=== PATIENT | male | born 1940 | race Caucasian/White ===

== ENCOUNTER 2016-11-11 18:47 | Inpatient (IN) | payer MEDICARE, OTHER ==
[~2016-11-11] VITALS: Ht 170.2 cm; Wt 71.2 kg
--- NOTE | 2016-11-11 19:03 | NUR ---
PT TRANSFERRED FROM [facility] FOR MED CLEARANCE AND ADMISSION TO MHU.PT AWAKE,ALERT AND COOPERATIVE AT PRESENT TIME.ANSWERING SOME QUESTIONS WITHOUT DIFFICULTY. PT IS ALERT, ORIENTED X 3, ABLE TO MAKE NEEDS KNOWN, ABLE TO AMBULATE WITHOUT ASSISTANCE... MD AT BEDSIDE...
[2016-11-11] MEDS ORDERED: ASPI81TA31 PO (19:27)
[2016-11-11] MEDS ORDERED: ATOR40TA PO (19:27)
[2016-11-11] MEDS ORDERED: FURO20TA4 PO (19:28)
[2016-11-11] MEDS ORDERED: HYDR-3326 PO (19:32)
[2016-11-11] MEDS ORDERED: ALBU2.5V38 IH (19:32)
[2016-11-11 19:51] LABS: HEMATOCRIT 43.5 % (40.0-50.0); HEMOGLOBIN 13.8 g/dL (14.0-18.0); MEAN CORPUSCULAR HEMOGLOBIN 28.7 uug (27.0-31.0); MEAN CORPUSCULAR HGB CONC 32 g/dL (32.0-37.0); MEAN CORPUSCULAR VOLUME 90.3 fL (82.0-92.0); RED BLOOD CELL COUNT(AUTO) 4.82 MIL/uL (4.70-6.10); RED CELL DISTRIBUTION WIDTH 13.7 % (11.5-14.5)
[2016-11-11 19:53] LABS: PLATELET COUNT (AUTO) 143 K/uL (150-450)
[2016-11-11 20:07] LABS: ETHANOL < 3 MG/DL (0-0)
[2016-11-11 20:08] LABS: BAND % (MANUAL) 4 % (0-10); EOSINOPHILS % (MANUAL) 4 % (0-8); LYMPHOCYTES % (MANUAL) 27 % (20-40); MONOCYTES % (MANUAL) 7 % (2-10); NEUTROPHILS % (MANUAL) 58 % (42-75); PLATELET ESTIMATE SLIGHT DECREASED
[2016-11-11 20:10] LABS: CALCIUM 8.9 mg/dL (8.5-10.1); CARBON DIOXIDE 30 mmol/L (21-32); CHLORIDE 104 mmol/L (98-107); CREATININE 1.1 mg/dL (0.6-1.3); GLUCOSE 138 mg/dL (74-106); POTASSIUM 4.4 mmol/L (3.5-5.1); SODIUM SERUM 140 mmol/L (136-145); UREA NITROGEN, BLOOD 14 mg/dL (7-18)
[2016-11-11 20:13] LABS: ALANINE AMINOTRANSFERASE 35 U/L (16-63); ALBUMIN 3.4 g/dL (3.4-5.0); ALKALINE PHOSPHATASE 117 U/L (50-136); ASPARTATE AMINOTRANSFERASE 36 U/L (15-37); BILIRUBIN,DIRECT 0.3 mg/dL (0.0-0.2); TOTAL PROTEIN, SERUM 7.7 g/dL (6.4-8.2)
[2016-11-11 20:14] LABS: ACETAMINOPHEN < 2.0 ug/mL (10-30)
[2016-11-11 20:16] LABS: THYROID STIMULATING HORMONE 2.416 mIU/mL (0.358-3.740)
[2016-11-11 20:25] LABS: *BILIRUBIN,URIN NEGATIVE (NEGATIVE); *BLOOD, URINE NEGATIVE (NEGATIVE); *CLARITY,URINE CLEAR (CLEAR); *COLOR,URINE YELLOW (YELLOW); *KETONES,URINE NEGATIVE (NEGATIVE); *PROTEIN,URINE NEGATIVE (NEGATIVE); *UROBILINOGEN,URINE 0.2 E.U./dl (NORMAL); LEUKOCYTE ESTERASE ,URINE NEGATIVE (NEGATIVE); NITRITE, URINE NEGATIVE (NEGATIVE); PH,URINE 5.5 (5.0-8.0); UGLUCOSE NEGATIVE (NEGATIVE)
--- NOTE | 2016-11-11 20:30 | NUR ---
PT CURRENTLY SLEEPING IN BED, NO RESP DISTRESS NOTED UPON ASSESSMENT, WILL CONTINUE TO MONITOR FOR SAFETY, COMFORT, AND PAIN... LPS HAS BEEN PAGED FOR PSYCH ASSESSMENT...
[2016-11-11 20:35] LABS: WBC,URINE 0-3 /HPF (0-3)
[2016-11-11] MEDS ORDERED: MAG HYDROX/AL HYDROX/SIMETH 30 ML LIQUID UDC PO PRN (22:15)
[2016-11-11] MEDS ORDERED: ACETAMINOPHEN 325 MG TABLET PO PRN (22:15)
[2016-11-11] MEDS ORDERED: CLONAZEPAM 0.5 MG TABLET PO PRN (22:15)
[2016-11-11] MEDS ORDERED: TEMAZEPAM 7.5 MG CAPSULE PO PRN (22:15)
[2016-11-11] MEDS ORDERED: MAGNESIUM HYDROXIDE 30 ML LIQUID UDC PO PRN (22:15)
--- NOTE | 2016-11-11 22:31 | NUR ---
Pt. admitted to MHU , under care of Dr. Lopez, Belongs List completed, pt alert, oriented x 2-3, no resp distress noted upon transfer assessment... pt transferred via wheelchair belongings at side...
[2016-11-11] MEDS ORDERED: LORAZEPAM 2 MG/1 ML VIAL IM STA (22:47)
[2016-11-11] MEDS ORDERED: HALOPERIDOL LACTATE 5 MG/1 ML VIAL IM STA (22:47)
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
[2016-11-11 23:46] VITALS: BP 122/74
[2016-11-12 07:30] VITALS: BP 110/63
--- NOTE | 2016-11-12 08:39 | NUR ---
PAGED DIRECTOR CRITICAL CARE MD THROUGH SERVICE TO RECON MEDS, AWAITING CALL BACK.
--- NOTE | 2016-11-12 09:03 | NUR ---
SPOKE WITH DR CRAWFORD, HE WILL RECONCILE WHEN HE GETS TO THE HOSPITAL.
[2016-11-12] MEDS ORDERED: HYDROCODONE/APAP 5-325MG TABLET PO PRN (09:30)
[2016-11-12] MEDS: ASPIRIN 81 MG TAB.CHEW PO SCH (11:07)
[2016-11-12] MEDS: FUROSEMIDE 20 MG TABLET PO SCH (11:08)
--- NOTE | 2016-11-12 16:24 | NUR ---
MANNY DAVIS HX: SPOKE WITH JOZEF FROM [facility], THEY HAVE NO VACCINE RECORDS ON THIS PT.
[2016-11-12] MEDS ORDERED: HALOPERIDOL LACTATE 5 MG/1 ML VIAL IM ONE (17:15)
[2016-11-12] MEDS ORDERED: diphenhydrAMINE 50 MG/1 ML VIAL IM ONE (17:15)
[2016-11-12] MEDS ORDERED: LORAZEPAM 2 MG/1 ML VIAL IM ONE (17:15)
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
[2016-11-12 20:00] VITALS: BP 129/77
[2016-11-12] MEDS: ATORVASTATIN 40 MG TABLET PO SCH (20:46)
[2016-11-12] MEDS: DIVALPROEX SPRINKLE 125 MG CAP.SPRINK PO SCH (20:46)
[2016-11-12] MEDS ORDERED: OLANZAPINE ZYDIS 5 MG TAB.RAPDIS PO SCH (21:00)
[2016-11-13 07:30] VITALS: BP 110/67
[2016-11-13] MEDS: FUROSEMIDE 20 MG TABLET PO SCH (08:31)
[2016-11-13] MEDS: ASPIRIN 81 MG TAB.CHEW PO SCH (08:31)
[2016-11-13] MEDS: DIVALPROEX SPRINKLE 125 MG CAP.SPRINK PO SCH ×2 (08:31→20:04)
[2016-11-13 17:16] VITALS: BP 139/75
[2016-11-13] MEDS: ATORVASTATIN 40 MG TABLET PO SCH (20:05)
[2016-11-13] MEDS: OLANZAPINE ZYDIS 5 MG TAB.RAPDIS PO SCH (20:05)
--- NOTE | 2016-11-13 20:52 | NUR ---
PATIENT RECEIVED IN ROOM AWAKE. PATIENT PLEASANT UPON APPROACH, HOWEVER IS EASILY AGITATED, AND EASILY IRRITABLE IS REDIRECTABLE. PATIENT IS UNPREDICTABLE, CONTINUE TO MONITOR. PATIENT DENIES PAIN AT THIS TIME, WILL CONTINUE TO MONITOR. PATIENT IS HYPERVERBAL, NO AGGRESSIVE OR COMBATIVE BEHAVIOR NOTED WILL CONTINUE TO MONITOR. PATIENT COMPLAINT WITH HS MEDICATION. PATIENT HAS POOR INSIGHT, POOR JUDGEMENT CONTINUE TO MONITOR AND REDIRECT NEEDED. ENCOURAGED PATIENT TO EXPRESS FEELINGS AND CONCERNS. BED IN LOWEST POSITION, BED LOCKED AND BED ALARM ON WHILE IN BED.
[2016-11-13 22:28] VITALS: BP 114/67
[2016-11-14 08:00] VITALS: BP 137/76
[2016-11-14] MEDS: DIVALPROEX SPRINKLE 125 MG CAP.SPRINK PO SCH ×2 (08:21→20:16)
[2016-11-14] MEDS: OLANZAPINE ZYDIS 5 MG TAB.RAPDIS PO SCH ×2 (08:21→20:16)
[2016-11-14] MEDS: ASPIRIN 81 MG TAB.CHEW PO SCH (08:21)
[2016-11-14] MEDS: FUROSEMIDE 20 MG TABLET PO SCH (08:21)
--- NOTE | 2016-11-14 12:44 | NUR ---
Initial discharge instructions:Pt resides at [facility][[address],[address]].Per pt,he would like to return there upon discharge.Spoke with Anny at the facility who stated she would accept the pt back when ready.SW will speak with pt and MD regarding appropriate discharge planning.SW will form a safe and proper discharge.
[2016-11-14 16:37] VITALS: BP 126/86
[2016-11-14 20:05] VITALS: BP 108/50
[2016-11-14] MEDS: ATORVASTATIN 40 MG TABLET PO SCH (20:15)
--- NOTE | 2016-11-14 21:11 | NUR ---
PATIENT RECEIVED IN ACTIVITIES ROOM WATCHING T.V. PATIENT PLEASANT UPON APPROACH, HOWEVER IS EASILY AGITATED, AND EASILY IRRITABLE IS REDIRECTABLE. PATIENT DENIES PAIN AT THIS TIME, WILL CONTINUE TO MONITOR. PATIENT IS HYPERVERBAL, NO AGGRESSIVE OR COMBATIVE BEHAVIOR NOTED WILL CONTINUE TO MONITOR. PATIENT COMPLAINT WITH HS MEDICATION. PATIENT HAS POOR INSIGHT, POOR JUDGEMENT CONTINUE TO MONITOR AND REDIRECT NEEDED. ENCOURAGED PATIENT TO EXPRESS FEELINGS AND CONCERNS. BED IN LOWEST POSITION, BED LOCKED AND BED ALARM ON WHILE IN BED.
[2016-11-15 07:30] VITALS: BP 119/69
[2016-11-15] MEDS: DIVALPROEX SPRINKLE 125 MG CAP.SPRINK PO SCH ×2 (08:22→20:13)
[2016-11-15] MEDS: ASPIRIN 81 MG TAB.CHEW PO SCH (08:22)
[2016-11-15] MEDS: OLANZAPINE ZYDIS 5 MG TAB.RAPDIS PO SCH ×2 (08:22→20:12)
[2016-11-15] MEDS: FUROSEMIDE 20 MG TABLET PO SCH (08:22)
[2016-11-15 16:32] VITALS: BP 124/64
[2016-11-15] MEDS: ATORVASTATIN 40 MG TABLET PO SCH (20:12)
[2016-11-15 20:29] VITALS: BP 110/56
[2016-11-16 07:27] LABS: BASOPHILS # (AUTO) 0.1 K/uL (0.0-0.2); BASOPHILS % (AUTO) 1.9 % (0.0-2.0); EOSINOPHILS # (AUTO) 0.2 K/uL (0.0-0.7); HEMATOCRIT 49.1 % (40.0-50.0); HEMOGLOBIN 15.4 g/dL (14.0-18.0); LYMPHOCYTES # (AUTO) 1.9 K/uL (0.8-4.8); LYMPHOCYTES % (AUTO) 29.5 % (20.5-51.5); MEAN CORPUSCULAR HEMOGLOBIN 28.5 uug (27.0-31.0); MEAN CORPUSCULAR HGB CONC 31 g/dL (32.0-37.0); MEAN CORPUSCULAR VOLUME 90.9 fL (82.0-92.0); MONOCYTES # (AUTO) 0.7 K/uL (0.1-1.30); MONOCYTES % (AUTO) 10.7 % (0.0-11.0); NEUTROPHILS # (AUTO) 3.5 K/uL (1.8-8.9); NEUTROPHILS % (AUTO) 54.9 % (38.5-71.5); PLATELET COUNT (AUTO) 145 K/uL (150-450); RED CELL DISTRIBUTION WIDTH 14.2 % (11.5-14.5); WHITE BLOOD COUNT (AUTO) 6.4 K/uL (4.0-11.2)
[2016-11-16 07:30] VITALS: BP 98/67
[2016-11-16 08:22] LABS: ALBUMIN 3.4 g/dL (3.4-5.0); BILIRUBIN,TOTAL 1.5 mg/dL (0.2-1.0); CALCIUM 8.9 mg/dL (8.5-10.1); MAGNESIUM 2.2 mg/dL (1.8-2.4); PHOSPHOROUS 4.1 mg/dL (2.5-4.9); POTASSIUM 4.8 mmol/L (3.5-5.1); TOTAL PROTEIN, SERUM 7.7 g/dL (6.4-8.2)
[2016-11-16] MEDS: DIVALPROEX SPRINKLE 125 MG CAP.SPRINK PO SCH ×2 (08:22→20:08)
[2016-11-16] MEDS: ASPIRIN 81 MG TAB.CHEW PO SCH (08:23)
[2016-11-16] MEDS: OLANZAPINE ZYDIS 5 MG TAB.RAPDIS PO SCH ×2 (08:23→20:08)
[2016-11-16] MEDS: FUROSEMIDE 20 MG TABLET PO SCH (08:23)
[2016-11-16] MEDS ORDERED: INFLUENZA VACCINE 0.5 ML DISP.SYRIN IM ONE (13:00)
[2016-11-16] MEDS ORDERED: PNEUMOCOCCAL 23-VAL P-SAC VAC 0.5 ML VIAL IM ONE (13:00)
[2016-11-16 16:00] VITALS: BP 129/64
[2016-11-16] MEDS: ATORVASTATIN 40 MG TABLET PO SCH (20:08)
[2016-11-16 20:23] VITALS: BP 124/67
[2016-11-17 07:30] VITALS: BP 112/59
[2016-11-17] MEDS: OLANZAPINE ZYDIS 5 MG TAB.RAPDIS PO SCH (08:16)
[2016-11-17] MEDS: FUROSEMIDE 20 MG TABLET PO SCH (08:16)
[2016-11-17] MEDS: DIVALPROEX SPRINKLE 125 MG CAP.SPRINK PO SCH (08:16)
[2016-11-17] MEDS: ASPIRIN 81 MG TAB.CHEW PO SCH (08:16)
--- NOTE | 2016-11-17 10:11 | NUR ---
DC Note: The Patient will be discharged today back to [facility] [[address], [place] [address]; ] via private transportation at 4:00 pm. Patient will be picked up by the facility's transportation service. Spoke with Anny at the facility who stated she would accept the patient back today. Patient has no family to contact. Patient is aware and agreeable with discharge plans. Patient will follow-up with (Psychiatrist) and (Inspector Raw Quartz) at the facility.
--- NOTE | 2016-11-17 17:47 | NUR ---
GPS NSG NOTE 1700: DISCHARGED PT IN STABLE CONDITION VIA PRIVATE AMBULANCE TO [facility]. BELONGINGS SENT WITH THE PATIENT.
== END 2016-11-17 17:00 | DRG 885 ==
LOC: ER 18:47 → GPS 22:12
PROVIDERS: ADMIT Psychiatry & Neurology Psychiatry; ATTEND Internal Medicine
DX: F39 Unspecified mood [affective] disorder (principal); I48.2 Chronic atrial fibrillation; F29 Unspecified psychosis not due to a substance or known physiological condition; D64.9 Anemia, unspecified; D69.6 Thrombocytopenia, unspecified; E78.00 Pure hypercholesterolemia, unspecified; G89.29 Other chronic pain; F17.210 Nicotine dependence, cigarettes, uncomplicated; F20.9 Schizophrenia, unspecified; R73.03 Prediabetes; Z59.0 Homelessness; J44.9 Chronic obstructive pulmonary disease, unspecified; Z95.1 Presence of aortocoronary bypass graft; Z73.6 Limitation of activities due to disability; Z87.440 Personal history of urinary (tract) infections; E80.6 Other disorders of bilirubin metabolism
CPT/HCPCS: 36415; 83735; 84100; 84443; 85025; 90686; 90732; 93005; 97001; A4663; G0480-TC; G6040-TC; J1200; J1630; J2060

== ENCOUNTER 2016-12-05 20:07 | Inpatient (IN) | payer MEDICARE, OTHER ==
[~2016-12-05] VITALS: Ht 177.8 cm; Wt 74.8 kg
[~2016-12-05 20:07] MED LIST: ALBU2.5V38 IH; ASPI81TA31 PO; ATOR40TA PO; FURO20TA4 PO; HYDR-3326 PO
--- NOTE | 2016-12-05 20:25 | NUR ---
Pt brought into ER by pick up truck driver and nurse from [place] to be medically cleared to admitted to MHU. Pt denies SI,hallucinations. Pt calm and cooperative
--- NOTE | 2016-12-05 20:29 | NUR ---
MRSA servillance obtain and sent to lab. Doug list completed
[2016-12-05] MEDS ORDERED: MAGN400O4 PO (20:32)
[2016-12-05] MEDS ORDERED: BISA10SU12 RC (20:32)
[2016-12-05] MEDS ORDERED: ACET-2154 PO (20:32)
[2016-12-05] MEDS ORDERED: MAG-55 PO (20:32)
[2016-12-05 20:34] LABS: BASOPHILS # (AUTO) 0.1 K/uL (0.0-8.0); BASOPHILS % (AUTO) 1.1 % (0.0-2.0); EOSINOPHILS # (AUTO) 0.2 K/uL (0.0-0.7); EOSINOPHILS % (AUTO) 4.3 % (0.0-7.0); HEMATOCRIT 37.8 % (36.7-47.1); HEMOGLOBIN 12.6 g/dL (12.5-16.3); LYMPHOCYTES # (AUTO) 1.3 K/uL (20.0-40.0); LYMPHOCYTES % (AUTO) 23.7 % (20.5-51.5); MEAN CORPUSCULAR HEMOGLOBIN 30.1 uug (23.8-33.4); MEAN CORPUSCULAR HGB CONC 33 g/dL (32.5-36.3); MEAN CORPUSCULAR VOLUME 90.7 fL (73.0-96.2); MONOCYTES # (AUTO) 0.8 K/uL (2.0-10.0); MONOCYTES % (AUTO) 14.7 % (0.0-11.0); NEUTROPHILS # (AUTO) 3.3 K/uL (1.8-8.9); NEUTROPHILS % (AUTO) 56.2 % (38.5-71.5); PLATELET COUNT (AUTO) 144 K/uL (152-348); RED BLOOD CELL COUNT(AUTO) 4.17 MIL/uL (4.06-5.63); RED CELL DISTRIBUTION WIDTH 14.3 % (12.1-16.2); WHITE BLOOD COUNT (AUTO) 5.7 K/uL (3.6-10.2)
[2016-12-05 20:39] LABS: *BILIRUBIN,URIN NEGATIVE (NEGATIVE); *BLOOD, URINE NEGATIVE (NEGATIVE); *CLARITY,URINE SLIGHTLY CLOUDY (CLEAR); *COLOR,URINE YELLOW (YELLOW); *KETONES,URINE NEGATIVE (NEGATIVE); *PROTEIN,URINE NEGATIVE (NEGATIVE); *UROBILINOGEN,URINE 0.2 E.U./dl (NORMAL); LEUKOCYTE ESTERASE ,URINE 3+ (NEGATIVE); NITRITE, URINE NEGATIVE (NEGATIVE); UGLUCOSE NEGATIVE (NEGATIVE)
[2016-12-05 20:42] LABS: CALCIUM 8.4 mg/dL (8.5-10.1); CARBON DIOXIDE 29 mmol/L (21-32); CHLORIDE 102 mmol/L (98-107); GLUCOSE 137 mg/dL (74-106); SODIUM SERUM 137 mmol/L (136-145); UREA NITROGEN, BLOOD 17 mg/dL (7-18)
[2016-12-05 20:49] LABS: ALANINE AMINOTRANSFERASE 30 U/L (16-63); ALKALINE PHOSPHATASE 83 U/L (50-136); ASPARTATE AMINOTRANSFERASE 28 U/L (15-37); BILIRUBIN,DIRECT 0.2 mg/dL (0.0-0.2); BILIRUBIN,TOTAL 0.7 mg/dL (0.2-1.0); TOTAL PROTEIN, SERUM 7.1 g/dL (6.4-8.2)
[2016-12-05 20:51] LABS: ETHANOL < 3 MG/DL (0-0)
[2016-12-05 20:52] LABS: *AMPHETAMINE, URINE NEGATIVE (NEGATIVE); *BARBITURATE, URINE NEGATIVE (NEGATIVE); *CANNABINOID, URINE NEGATIVE (NEGATIVE); *COCCAINE, URINE NEGATIVE (NEGATIVE); *OPIATE, URINE NEGATIVE (NEGATIVE); *PHENCYCLIDINE SCREEN,URINE NEGATIVE (NEGATIVE); BACTERIA,URINE MODERATE /HPF (NONE SEEN); RBC,URINE 0-3 /HPF (0-3); WBC,URINE 20-50 /HPF (0-3)
[2016-12-05 20:54] LABS: ACETAMINOPHEN < 2.0 ug/mL (10-30)
[2016-12-05 20:55] LABS: THYROID STIMULATING HORMONE 2.482 mIU/mL (0.358-3.740)
--- NOTE | 2016-12-05 20:59 | NUR ---
Medically cleared by Dr Lara
[2016-12-05] MEDS ORDERED: NITROFURANTOIN/NITROFURAN MAC 100 MG CAPSULE PO ONE (21:15)
--- NOTE | 2016-12-05 21:27 | NUR ---
Delfino Fam will come to eval pt
[2016-12-05] MEDS ORDERED: NITROFURANTOIN/NITROFURAN MAC 100 MG CAPSULE ONE (21:29)
--- NOTE | 2016-12-05 22:25 | NUR ---
Art Capilla placed patient on 5150 hold for GD
--- NOTE | 2016-12-05 23:13 | NUR ---
Transfered to [facility] via chris
[2016-12-05] MEDS ORDERED: MAG HYDROX/AL HYDROX/SIMETH 30 ML LIQUID UDC PO PRN (23:30)
[2016-12-05] MEDS ORDERED: CLONAZEPAM 0.5 MG TABLET PO PRN (23:30)
[2016-12-05] MEDS ORDERED: MAGNESIUM HYDROXIDE 30 ML LIQUID UDC PO PRN (23:30)
[2016-12-05] MEDS ORDERED: ACETAMINOPHEN 325 MG TABLET PO PRN (23:30)
[2016-12-06 00:19] VITALS: BP 114/61
--- NOTE | 2016-12-06 00:35 | NUR ---
PATIENT RECEIVED FROM ER VIA [facility] AT 2315, PATIENT ALERT/ORIENTED X2 WITH CONFUSION. DISORIENTED,AND DISORGANIZED NOTED. PATIENT EASILY AGITATED, AND EASILY IRRITABLE, UNPREDICTABLE BEHAVIOR. POOR JUDGEMENT, AND POOR IMPULSE CONTROL, POOR INSIGHT. PATIENT CHECKED FOR CONTRABAND NOTED WITH BELT REMOVED AND PLACED IN LOCKER WITH NAME. PATIENT ALSO CHANGED IN HOSPITAL GOWN. SKIN NOTED WITH ULCER TO LEFT FOOT WILL ORDER WOUND CONSULT TO FURTHER DETERMINE TREATMENT, RIGHT THUMB ABRASION NOTED. PATIENT ORIENTED TO ROOM AND BATHROOM REQUIRES REDIRECTION AND REINFORCEMENT. PATIENT RECEIVED PATIENT HAND BOOK AND ADVISEMENT. BED IN LOWEST POSITION, BED LOCKED, AND BED ALARM ON WHILE IN BED. NO AGGRESSIVE BEHAVIOR NOTED, NO COMBATIVE BEHAVIOR NOTED WILL CONTINUE TO MONITOR AND REDIRECT NEEDED.
--- NOTE | 2016-12-06 05:44 | NUR ---
PATIENT SLEPT 5:15, NO AGGRESSIVE OR COMBATIVE BEHAVIOR NOTED.
[2016-12-06 07:30] VITALS: BP 117/72
[2016-12-06] MEDS: NICOTINE 21 MG/24HR PATCH TD SCH (11:00)
--- NOTE | 2016-12-06 11:00 | NUR ---
Psychosocial assessment/criminal justice social worker: I have reviewed this patient's psychosocial dated 11/11/2016 and can attest to the accuracy of information therein. There have been no changes since his last assessment. Patient's mood is easily irritable, aggravated, and verbally aggressive today. He appeared partially confused and is alert/oriented x2. Patient refused nicotine patch and stated " I don't want to f quit smoking." Per Anny at [facility], the patient will have to be placed at their sister-facility ([facility]).
[2016-12-06] MEDS: CEPHALEXIN MONOHYDRATE 500 MG CAPSULE PO SCH ×3 (11:05→21:25)
[2016-12-06] MEDS: FUROSEMIDE 20 MG TABLET PO SCH (11:05)
[2016-12-06] MEDS: ASPIRIN 81 MG TAB.CHEW PO SCH (11:05)
[2016-12-06] MEDS: DIVALPROEX SPRINKLE 125 MG CAP.SPRINK PO SCH ×2 (13:22→20:26)
[2016-12-06] MEDS: OLANZAPINE ZYDIS 5 MG TAB.RAPDIS PO SCH ×2 (13:22→17:59)
--- NOTE | 2016-12-06 13:36 | NUR ---
WOUND CARE CONSULT: PT PRESENTS WITH LEFT DORSAL FOOT WOUND. RECOMMEND DPM CONSULT. RECOMMENDATIONS MADE FOR WOUND CARE. DISCUSSED WITH NURSING STAFF. PER NURSING STAFF, PT IS CONTINENT AND AMBULATORY. GWENDOYLN SCORE IS 21. WILL SEE PRN. BEAR IN AGREEMENT WITH PLAN OF CARE. Addendum: 12/06/16 at 1337 by MICHELLE RAMSEY RN Amended: Links added.
[2016-12-06] MEDS: BACITRACIN/POLYMYXIN B OINT 15 GM TUBE TOP SCH (15:12)
[2016-12-06 15:21] VITALS: BP 106/67
--- NOTE | 2016-12-06 20:00 | NUR ---
PT RECEIVED IN HIS ROOM AWAKE, EASILY IRRITATED AND AGITATED, VERY DISORGANIZED SPEECH AND THOUGHT, WILL CONTINUE TO MONITOR CLOSELY.
[2016-12-06] MEDS: ATORVASTATIN 40 MG TABLET PO SCH (20:26)
[2016-12-06 20:37] VITALS: BP 118/62
--- NOTE | 2016-12-07 01:00 | NUR ---
PT STILL AWAKE, PERIODICALLY ARGUING WITH HIS ROOM, SLEEPING MED OFFERED, PT DECLINED, WILL CONTINUE TO MONITOR.
--- NOTE | 2016-12-07 03:00 | NUR ---
PT STILL AWAKE, REFUSES ANTI ANXIETY MED SAYING " I TOOK A NAP DURING THE DAY, I DON'T SLEEP A LOT". WILL CONTINUE TO MONITOR CLOSELY.
[2016-12-07] MEDS: BLOOD SUGAR DIAGNOSTIC 1 EACH STRIP VI SCH (06:06)
[2016-12-07] MEDS: CEPHALEXIN MONOHYDRATE 500 MG CAPSULE PO SCH ×3 (06:06→22:05)
[2016-12-07] MEDS: HYDROCODONE/APAP 5-325MG TABLET PO PRN (06:13)
--- NOTE | 2016-12-07 06:15 | NUR ---
PT AT THE NURSING STATION COMPLAINING OF LOWER BACK PAIN, VERY IRRITATED, AND VERBALLY ABUSIVE, PAIN MED GIVEN ORDERED, WILL CONTINUE TO MONITOR.
[2016-12-07 07:30] VITALS: BP 101/59
[2016-12-07] MEDS: DIVALPROEX SPRINKLE 125 MG CAP.SPRINK PO SCH ×2 (08:22→20:02)
[2016-12-07] MEDS: OLANZAPINE ZYDIS 5 MG TAB.RAPDIS PO SCH ×2 (08:22→17:23)
[2016-12-07] MEDS: FUROSEMIDE 20 MG TABLET PO SCH (08:22)
[2016-12-07] MEDS: ASPIRIN 81 MG TAB.CHEW PO SCH (08:22)
[2016-12-07] MEDS: BACITRACIN/POLYMYXIN B OINT 15 GM TUBE TOP SCH (08:25)
[2016-12-07] MEDS: NICOTINE 21 MG/24HR PATCH TD SCH (08:33)
--- NOTE | 2016-12-07 13:07 | NUR ---
WEEKLY MEETING PO INTAKE 100% ON CARDIAC DIET PER RN, PT HAS HX OF DIABETES, NOT INDICATED IN CHART HG A1C=6.3%, GLUCOSE ON 12/0523=025, ACCUCHECK ON 12/07=89 REC TO MONITOR GLUCOSE LABS, IF ELEVATED, REC TO ADD CCHO DIET RESTRICTION LAST BM ON 12/06 NOTED OPEN WOUND ON LEFT FOOT MEDS: LIPITOR, LASIX, NO DNI NOTED NUTRITION DIAGNOSIS: ALTERED NUTRITION RELATED LABS RELATED TO ENDOCRINE DYSFUNCTION EVIDENCED BY HG A1C AND GLUCOSE LABS MONITOR LABS, PO, AND WEIGHT Addendum: 12/07/16 at [address] Amended: Links added.
[2016-12-07 16:00] VITALS: BP 118/60
[2016-12-07] MEDS: ATORVASTATIN 40 MG TABLET PO SCH (20:02)
[2016-12-07 20:34] VITALS: BP 124/63
--- NOTE | 2016-12-07 21:01 | NUR ---
PT RECEIVED IN BED, EASILY IRRITABLE/AGITATED BUT NO AGGRESSIVE BEHAVIOR NOTED. NO ACUTE DISTRESS NOTED. SAFETY MEASURES MAINTAINED.
--- NOTE | 2016-12-08 03:00 | NUR ---
PATIENT AWAKE SITTING ON BED, MEDICATION FOR INSOMNIA OFFERED BUT PATIENT REFUSED DESPITE EDUCATION. NO ACUTE DISTRESS NOTED. WILL CONTINUE TO MONITOR FOR SAFETY.
--- NOTE | 2016-12-08 06:07 | NUR ---
PT AWAKE THROUGH OUT THE NIGHT, SLEPT 3 HOURS. NO ACUTE DISTRESS NOTED. SAFETY MEASURES PROVIDED.
[2016-12-08] MEDS: CEPHALEXIN MONOHYDRATE 500 MG CAPSULE PO SCH ×3 (06:32→21:16)
[2016-12-08] MEDS: BLOOD SUGAR DIAGNOSTIC 1 EACH STRIP VI SCH (06:36)
[2016-12-08 07:30] VITALS: BP 121/57
[2016-12-08] MEDS: FUROSEMIDE 20 MG TABLET PO SCH (08:20)
[2016-12-08] MEDS: OLANZAPINE ZYDIS 5 MG TAB.RAPDIS PO SCH ×2 (08:21→16:14)
[2016-12-08] MEDS: DIVALPROEX SPRINKLE 125 MG CAP.SPRINK PO SCH ×2 (08:21→18:08)
[2016-12-08] MEDS: ASPIRIN 81 MG TAB.CHEW PO SCH (08:21)
[2016-12-08] MEDS: NICOTINE 21 MG/24HR PATCH TD SCH (08:21)
[2016-12-08] MEDS: BACITRACIN/POLYMYXIN B OINT 15 GM TUBE TOP SCH (08:21)
[2016-12-08 16:00] VITALS: BP 90/52
[2016-12-08 20:06] VITALS: BP 116/79
[2016-12-08] MEDS: ATORVASTATIN 40 MG TABLET PO SCH (20:18)
[2016-12-08] MEDS: TEMAZEPAM 7.5 MG CAPSULE PO PRN (21:14)
[2016-12-09] MEDS: BLOOD SUGAR DIAGNOSTIC 1 EACH STRIP VI SCH (06:25)
[2016-12-09] MEDS: CEPHALEXIN MONOHYDRATE 500 MG CAPSULE PO SCH ×3 (06:25→21:27)
[2016-12-09 07:18] LABS: HEMATOCRIT 40.1 % (36.7-47.1); HEMOGLOBIN 13.3 g/dL (12.5-16.3); MEAN CORPUSCULAR HEMOGLOBIN 30.3 uug (23.8-33.4); MEAN CORPUSCULAR HGB CONC 33 g/dL (32.5-36.3); PLATELET COUNT (AUTO) 130 K/uL (152-348); RED CELL DISTRIBUTION WIDTH 14.5 % (12.1-16.2); WHITE BLOOD COUNT (AUTO) 5.5 K/uL (3.6-10.2)
[2016-12-09 07:30] VITALS: BP 119/49
[2016-12-09 07:31] LABS: ALBUMIN 3.3 g/dL (3.4-5.0); BILIRUBIN,TOTAL 1.3 mg/dL (0.2-1.0); CALCIUM 8.6 mg/dL (8.5-10.1); MAGNESIUM 2.1 mg/dL (1.8-2.4); PHOSPHOROUS 4.3 mg/dL (2.5-4.9); POTASSIUM 4.1 mmol/L (3.5-5.1); TOTAL PROTEIN, SERUM 7.5 g/dL (6.4-8.2)
[2016-12-09] MEDS: OLANZAPINE ZYDIS 5 MG TAB.RAPDIS PO SCH ×2 (08:00→16:07)
[2016-12-09] MEDS: FUROSEMIDE 20 MG TABLET PO SCH (08:00)
[2016-12-09] MEDS: NICOTINE 21 MG/24HR PATCH TD SCH (08:00)
[2016-12-09] MEDS: ASPIRIN 81 MG TAB.CHEW PO SCH (08:00)
[2016-12-09] MEDS: DIVALPROEX SPRINKLE 125 MG CAP.SPRINK PO SCH ×3 (08:00→16:07)
[2016-12-09] MEDS: BACITRACIN/POLYMYXIN B OINT 15 GM TUBE TOP SCH (09:25)
[2016-12-09 10:51] LABS: EOSINOPHILS % (MANUAL) 3 % (0-8); LYMPHOCYTES % (MANUAL) 26 % (20-40); MONOCYTES % (MANUAL) 17 % (2-10); NEUTROPHILS % (MANUAL) 54 % (42-75); PLATELET ESTIMATE SLIGHT DECREASED
[2016-12-09 16:06] VITALS: BP 128/72
[2016-12-09 20:59] VITALS: BP 105/62
[2016-12-09] MEDS: ATORVASTATIN 40 MG TABLET PO SCH (21:27)
[2016-12-09] MEDS: TEMAZEPAM 7.5 MG CAPSULE PO PRN (21:28)
[2016-12-10] MEDS: CEPHALEXIN MONOHYDRATE 500 MG CAPSULE PO SCH ×3 (06:33→21:42)
[2016-12-10] MEDS: BLOOD SUGAR DIAGNOSTIC 1 EACH STRIP VI SCH (06:34)
[2016-12-10 07:30] VITALS: BP 97/56
[2016-12-10] MEDS: ASPIRIN 81 MG TAB.CHEW PO SCH (08:53)
[2016-12-10] MEDS: DIVALPROEX SPRINKLE 125 MG CAP.SPRINK PO SCH ×3 (08:56→16:59)
[2016-12-10] MEDS: BACITRACIN/POLYMYXIN B OINT 15 GM TUBE TOP SCH (08:57)
[2016-12-10] MEDS: FUROSEMIDE 20 MG TABLET PO SCH (08:59)
[2016-12-10] MEDS: NICOTINE 21 MG/24HR PATCH TD SCH (09:00)
[2016-12-10] MEDS: OLANZAPINE ZYDIS 5 MG TAB.RAPDIS PO SCH ×2 (09:00→16:59)
[2016-12-10 16:00] VITALS: BP 135/79
[2016-12-10 21:09] VITALS: BP 134/74
[2016-12-10] MEDS: ATORVASTATIN 40 MG TABLET PO SCH (21:42)
[2016-12-11] MEDS: TEMAZEPAM 7.5 MG CAPSULE PO PRN ×2 (02:17→21:13)
[2016-12-11] MEDS: CEPHALEXIN MONOHYDRATE 500 MG CAPSULE PO SCH ×3 (06:44→21:13)
[2016-12-11] MEDS: BLOOD SUGAR DIAGNOSTIC 1 EACH STRIP VI SCH (06:45)
[2016-12-11 07:30] VITALS: BP 110/64
[2016-12-11] MEDS: ASPIRIN 81 MG TAB.CHEW PO SCH (08:43)
[2016-12-11] MEDS: NICOTINE 21 MG/24HR PATCH TD SCH (08:44)
[2016-12-11] MEDS: OLANZAPINE ZYDIS 5 MG TAB.RAPDIS PO SCH ×2 (08:44→17:20)
[2016-12-11] MEDS: DIVALPROEX SPRINKLE 125 MG CAP.SPRINK PO SCH ×3 (08:44→17:19)
[2016-12-11] MEDS: FUROSEMIDE 20 MG TABLET PO SCH (08:50)
[2016-12-11] MEDS: BACITRACIN/POLYMYXIN B OINT 15 GM TUBE TOP SCH (08:56)
[2016-12-11] MEDS ORDERED: CLONAZEPAM 0.5 MG TABLET PO PRN (15:45)
[2016-12-11] MEDS ORDERED: TEMAZEPAM 7.5 MG CAPSULE PO PRN (15:45)
[2016-12-11 16:00] VITALS: BP 108/64
[2016-12-11] MEDS: ATORVASTATIN 40 MG TABLET PO SCH (21:13)
[2016-12-11 21:27] VITALS: BP 117/67
[2016-12-12] MEDS: BLOOD SUGAR DIAGNOSTIC 1 EACH STRIP VI SCH (05:47)
[2016-12-12] MEDS: CEPHALEXIN MONOHYDRATE 500 MG CAPSULE PO SCH ×3 (05:48→20:48)
[2016-12-12 07:30] VITALS: BP 111/56
[2016-12-12] MEDS: FUROSEMIDE 20 MG TABLET PO SCH (08:11)
[2016-12-12] MEDS: DIVALPROEX SPRINKLE 125 MG CAP.SPRINK PO SCH ×3 (08:11→17:28)
[2016-12-12] MEDS: ASPIRIN 81 MG TAB.CHEW PO SCH (08:11)
[2016-12-12] MEDS: OLANZAPINE ZYDIS 5 MG TAB.RAPDIS PO SCH ×2 (08:11→17:28)
[2016-12-12] MEDS: NICOTINE 21 MG/24HR PATCH TD SCH (08:11)
[2016-12-12] MEDS: BACITRACIN/POLYMYXIN B OINT 15 GM TUBE TOP SCH (09:04)
[2016-12-12 15:55] VITALS: BP 117/55
[2016-12-12] MEDS: ATORVASTATIN 40 MG TABLET PO SCH (20:48)
[2016-12-12] MEDS: HYDROCODONE/APAP 5-325MG TABLET PO PRN (20:49)
[2016-12-12 21:06] VITALS: BP 100/56
--- NOTE | 2016-12-12 22:00 | NUR ---
received to care, sitting at the bedside, isolative, but pleasant upon approach. compliant with hid medications and staff direction. PRN norco was given at 2048 for lower back pain 7/10 on pain scale. as of 2199, he remains awake, in bed. states good pain relief, 2/10. no distress noted. will continue to monitor closely.
--- NOTE | 2016-12-12 22:15 | NUR ---
appears to be asleep. no distress noted.
--- NOTE | 2016-12-13 06:00 | NUR ---
slept 7.5 hours.
[2016-12-13] MEDS: BLOOD SUGAR DIAGNOSTIC 1 EACH STRIP VI SCH (06:46)
[2016-12-13] MEDS: CEPHALEXIN MONOHYDRATE 500 MG CAPSULE PO SCH (06:51)
[2016-12-13 07:30] VITALS: BP 110/64
[2016-12-13] MEDS: NICOTINE 21 MG/24HR PATCH TD SCH (08:24)
[2016-12-13] MEDS: DIVALPROEX SPRINKLE 125 MG CAP.SPRINK PO SCH (08:25)
[2016-12-13] MEDS: FUROSEMIDE 20 MG TABLET PO SCH (08:25)
[2016-12-13] MEDS: OLANZAPINE ZYDIS 5 MG TAB.RAPDIS PO SCH (08:26)
[2016-12-13] MEDS: ASPIRIN 81 MG TAB.CHEW PO SCH (08:26)
[2016-12-13] MEDS: BACITRACIN/POLYMYXIN B OINT 15 GM TUBE TOP SCH (08:59)
--- NOTE | 2016-12-13 11:13 | NUR ---
DC Note: Patient will be discharged to [facility] [[address] [place] [address]; ] via ambulance at 1:00 pm. Spoke with Anny who stated she would accept the patient today. Patient is aware and agreeable with discharge plans. Patient will follow-up with Dr.Steven James (Pharmacy Technician Program Director) and (Psychiatrist) at the facility. Patient has no family to contact. For smoking cessation, patient was referred to [employer] 800-LUNGUSA and [employer] [phone].
--- NOTE | 2016-12-13 15:45 | NUR ---
DISCHARGED PATIENT TO [facility] VIA AMBULANCE ,PATIENT IN STABLE CONDITION VITAL SIGN STABLE.
== END 2016-12-13 15:45 | DRG 885 ==
LOC: ER 20:09 → GPS 23:07
PROVIDERS: ADMIT Psychiatry & Neurology Psychiatry; ATTEND Internal Medicine
DX: F25.9 Schizoaffective disorder, unspecified (principal); E11.65 Type 2 diabetes mellitus with hyperglycemia; N39.0 Urinary tract infection, site not specified; E44.0 Moderate protein-calorie malnutrition; R17 Unspecified jaundice; Z91.128 Patient's intentional underdosing of medication regimen for other reason; Z95.1 Presence of aortocoronary bypass graft; B96.20 Unspecified Escherichia coli [E. coli] as the cause of diseases classified elsewhere; E11.621 Type 2 diabetes mellitus with foot ulcer; L97.529 Non-pressure chronic ulcer of other part of left foot with unspecified severity; J44.9 Chronic obstructive pulmonary disease, unspecified; Z68.23 Body mass index [BMI] 23.0-23.9, adult; E78.00 Pure hypercholesterolemia, unspecified; D69.6 Thrombocytopenia, unspecified; Z87.440 Personal history of urinary (tract) infections; Z79.899 Other long term (current) drug therapy; Z59.0 Homelessness; G89.29 Other chronic pain; Z87.311 Personal history of (healed) other pathological fracture; M51.36 Other intervertebral disc degeneration, lumbar region
CPT/HCPCS: 36415; 80164; 80307; 83735; 84100; 84443; 85025; 87077; 87086; 93005; 97001; A4663; G0480-TC; G6040-TC